=== PATIENT | male | born 1975 | race Caucasian/White ===

== ENCOUNTER → 2021-10-18 | Outpatient (REF) | LOC: M LABSMTC 12:28 | PROVIDERS: ATTEND Pediatrics | DX: Z11.52 Encounter for screening for COVID-19 (principal) ==

== ENCOUNTER 2024-12-11 20:46 | Emergency (ER) | payer OTHER, SELFPAY ==
[~2024-12-11] VITALS: Ht 190.5 cm; Wt 139.4 kg
[2024-12-12] MEDS: methylPREDNISolone 125MG 2ML VIAL IM ONE (04:39)
[2024-12-12] MEDS: diazePAM 10MG/2ML SYRINGE IM ONE (04:39)
[2024-12-12] MEDS ORDERED: VALI5TAB PO (06:35)
[2024-12-12] MEDS ORDERED: MEDR4PAK PO (06:35)
[2024-12-12 07:00] VITALS: BP 130/89; TEMP 96.8; O2SAT 96
== END 2024-12-12 07:14 | disposition home or self-care (01) ==
LOC: M ED 20:46
DX: M54.12 Radiculopathy, cervical region (principal); Z79.899 Other long term (current) drug therapy
CPT/HCPCS: 72125; 96372; 99284; J2919; J3360

== ENCOUNTER → 2025-04-08 | Outpatient (CLI) | payer BC ==
[~2025-04-08] MED LIST: MEDR4PAK PO; VALI5TAB PO
== END ==
LOC: M PLAIMG 13:25
PROVIDERS: ATTEND Orthopaedic Surgery
DX: M50.30 Other cervical disc degeneration, unspecified cervical region (principal)